=== PATIENT | male | born 1950 | race Caucasian/White ===

== ENCOUNTER 2019-05-09 18:43 | Emergency (ER) | payer OTHER ==
[~2019-05-09] VITALS: Ht 182.9 cm; Wt 118.2 kg
[2019-05-09 18:45] VITALS: BP 182/90; TEMP 98.2
[2019-05-09 20:22] LABS: HEMATOCRIT 43.1 % (42.0-52.0); HEMOGLOBIN 14.8 g/dl (13.5-18.0); MEAN CELL VOLUME 95 fl (80.0-100.0); MEAN CORPUSCULAR HEMOGLOBIN 33 pg (27.0-31.0); MEAN CORPUSCULAR HGB CONC 34 g/dl (33.0-37.0); MEAN PLATELET VOLUME 11.7 fl (7.4-10.4); PLATELET COUNT 275 K/mm3 (130-400); RED BLOOD COUNT 4.54 M/mm3 (4.20-5.60); REDCELL DISTRIBUTION WIDTH-CV 13.5 % (11.5-14.5)
[2019-05-09 20:29] LABS: INR 1.1 (0.8-3.0); PROTHROMBIN TIME 13.1 SECONDS (9.7-12.8)
[2019-05-09 20:31] LABS: ALBUMIN 4.6 gm/dL (3.5-5.0); BILIRUBIN,TOTAL 0.6 mg/dL (0.0-1.0); CALCIUM 9.8 mg/dL (8.4-10.2); PARTIAL THROMBOPLASTIN TIME 29.2 SECONDS (26.0-37.0); POTASSIUM 3.3 mmol/L (3.4-5.0); TOTAL PROTEIN 8.3 gm/dL (6.4-8.2)
[2019-05-09 21:00] LABS: BAND 9 % (0-10); BASOPHIL 1 % (0-2); LYMPHOCYTE 7 % (20.0-51.0); NEUTROPHILS 80 % (42.0-75.2)
[2019-05-09 21:07] LABS: PLATELET ESTIMATE NORMAL (NORMAL)
[2019-05-09] MEDS ORDERED: NORCO 325 MG-51 TAB PO (22:38)
[2019-05-09] MEDS ORDERED: AMOXICILLIN 8751 TAB PO (23:14)
[2019-05-09 23:35] VITALS: PULSE 68
== END 2019-05-09 23:35 | disposition home or self-care (01) ==
LOC: COL.ER 18:43
PROVIDERS: Emergency Medicine
DX: S52.202A Unspecified fracture of shaft of left ulna, initial encounter for closed fracture (principal); S22.42XA Multiple fractures of ribs, left side, initial encounter for closed fracture; Z87.891 Personal history of nicotine dependence; V89.2XXA Person injured in unspecified motor-vehicle accident, traffic, initial encounter